=== PATIENT | female | born 1965 | race Hispanic/Latino ===

== ENCOUNTER 2021-08-04 09:22 | Emergency (ER) | payer OTHER ==
[~2021-08-04] VITALS: Ht 167.6 cm; Wt 65.8 kg
[2021-08-04] VITALS (8 sets, daily range): BP systolic 155–199; BP diastolic 82–114
[~2021-08-04 09:22] MED LIST: APIX5TAB PO; DILT30 PO; METO25 PO; OSEL75 PO
[2021-08-04 09:43] LABS: BASOPHILS % (AUTO) 0.6 % (0.0-5.0); EOSINOPHILS % (AUTO) 0.2 % (0.0-8.0); HEMATOCRIT 40.4 % (36-48); LYMPHOCYTES % (AUTO) 11.9 % (21.0-51.0); MEAN CORPUSCULAR HEMOGLOBIN 29.5 pg (27.0-33.0); MEAN CORPUSCULAR HGB CONC 34.4 g/dL (32.0-36.0); MEAN CORPUSCULAR VOLUME 85.8 fL (79-99); MONOCYTES % (AUTO) 4.3 % (3.0-13.0); NEUTROPHILS % (AUTO) 82.8 % (40.0-77.0); PLATELET COUNT (AUTO) 241 K/uL (130-400); RED BLOOD CELL COUNT(AUTO) 4.71 MIL/uL (4.00-5.50); WHITE BLOOD COUNT (AUTO) 8.6 K/uL (4.8-10.8)
[2021-08-04 09:56] LABS: CREATININE 1.3 mg/dL (0.5-1.5); POTASSIUM 3.2 mmol/L (3.5-5.1)
[2021-08-04 10:01] LABS: BILIRUBIN,TOTAL 0.7 mg/dL (0.2-1.0); TOTAL PROTEIN, SERUM 8.4 g/dL (6.0-8.3)
[2021-08-04 10:11] LABS: B-TYPE NATRIURETIC PEPTIDE 134 pg/mL (0-100)
[2021-08-04 10:38] LABS: APPEARANCE,URINE Clear (CLEAR); BILIRUBIN,URINE Negative (NEGATIVE); COLOR,URINE Yellow (YELLOW); GLUCOSE, URINE (UA) 500 mg/dL (NEGATIVE); KETONES,URINE Negative (NEGATIVE); LEUKOCYTE ESTERASE ,URINE Negative (NEGATIVE); NITRATE,URINE Negative (NEGATIVE); OCCULT BLOOD,URINE Negative (NEGATIVE); PROTEIN,URINE Negative (NEGATIVE); UROBILINOGEN,URINE 0.2 mg/dL (0.2-1.0)
[2021-08-04 10:48] LABS: AMPHET/METH SCREEN,URINE NEGATIVE (NEGATIVE); BARBITURATE SCREEN, URINE NEGATIVE (NEGATIVE); BENZODIAZEPINES SCREEN,URINE NEGATIVE (NEGATIVE); CANNABINOID SCREEN,URINE NEGATIVE (NEGATIVE); COCAINE SCREEN,URINE NEGATIVE (NEGATIVE); OPIATE SCREEN,URINE NEGATIVE (NEGATIVE); PHENCYCLIDINE SCREEN,URINE NEGATIVE (NEGATIVE)
[2021-08-04 10:57] LABS: BACTERIA,URINE Rare /HPF (None Seen); RBC,URINE None Seen /HPF (0-1); SQUAMOUS EPITHELIAL CELL,UR Rare /HPF (0-2); WBC,URINE None Seen /HPF (0-1)
[2021-08-04] MEDS ORDERED: IOHEXOL-350 75 ML VIAL IV ONE (12:20)
[2021-08-04] MEDS ORDERED: ASPIRIN 325MG TAB PO ONE (16:30)
[2021-08-04] MEDS ORDERED: METO100T14 PO (21:25)
[2021-08-04] MEDS ORDERED: NIFE-39 PO (21:25)
[2021-08-04] MEDS ORDERED: GLIP10TA9 PO (21:25)
[2021-08-04] MEDS ORDERED: HYDR12.54 PO (21:25)
[2021-08-04] MEDS ORDERED: SITA25TA5 PO (21:25)
[2021-08-04] MEDS ORDERED: ATOR10 PO (21:25)
[2021-08-04] MEDS ORDERED: HYDR-4153 PO (21:25)
[2021-08-04] MEDS ORDERED: SPIR25TA6 PO (21:25)
[2021-08-04] MEDS ORDERED: METF-445 PO (21:26)
[2021-08-04] MEDS ORDERED: HYDROCHLOROTHIAZIDE 25 MG TABLET PO ONE (23:00)
[2021-08-04] MEDS ORDERED: METFORMIN HCL 850 MG TABLET PO SCH (23:00)
[2021-08-04] MEDS ORDERED: METOPROLOL TARTRATE 50 MG TAB PO ONE (23:00)
== END 2021-08-05 00:30 | disposition short-term general hospital (02) ==
LOC: EDH 09:22
DX: I63.9 Cerebral infarction, unspecified (principal); I10 Essential (primary) hypertension; E11.9 Type 2 diabetes mellitus without complications; Z79.899 Other long term (current) drug therapy; Z79.84 Long term (current) use of oral hypoglycemic drugs; Z20.822 Contact with and (suspected) exposure to COVID-19
CPT/HCPCS: 36415; 70450; 70496; 70498; 70551; 80053; 80305; 81001; 82948; 83880; 84484; 85025; 87635; 93005; 99285; C9803; Q9967

== ENCOUNTER 2022-02-06 15:04 | Inpatient (IN) | payer OTHER ==
[~2022-02-06] VITALS: Ht 152.4 cm; Wt 67.4 kg
[~2022-02-06 15:04] MED LIST changes: +AMLO5TAB4 PO; -APIX5TAB PO; +ATOR20TA65 PO; +CLOP75TA14 PO; -DILT30 PO; +FAMO40TA7 PO; +GLIP10TA9 PO; +HYDR-4153 PO; +METF-445 PO; -METO25 PO; +METO25TA6 PO; -OSEL75 PO
[2022-02-06 15:39] LABS: BASOPHILS % (AUTO) 0.6 % (0.0-5.0); EOSINOPHILS % (AUTO) 0.5 % (0.0-8.0); HEMATOCRIT 35.7 % (36-48); LYMPHOCYTES % (AUTO) 9.5 % (21.0-51.0); MEAN CORPUSCULAR HEMOGLOBIN 29.4 pg (27.0-33.0); MEAN CORPUSCULAR HGB CONC 33.3 g/dL (32.0-36.0); MEAN CORPUSCULAR VOLUME 88.1 fL (79-99); MONOCYTES % (AUTO) 4.7 % (3.0-13.0); PLATELET COUNT (AUTO) 224 K/uL (130-400); RED BLOOD CELL COUNT(AUTO) 4.05 MIL/uL (4.00-5.50); RED CELL DISTRIBUTION WIDTH 12.3 % (11.0-15.5); WHITE BLOOD COUNT (AUTO) 11.7 K/uL (4.8-10.8)
[2022-02-06 15:52] LABS: APPEARANCE,URINE CLEAR (CLEAR); BILIRUBIN,URINE NEGATIVE (NEGATIVE); COLOR,URINE YELLOW (YELLOW); GLUCOSE, URINE (UA) >=1000 mg/dL (NEGATIVE); KETONES,URINE NEGATIVE (NEGATIVE); LEUKOCYTE ESTERASE ,URINE NEGATIVE (NEGATIVE); NITRATE,URINE NEGATIVE (NEGATIVE); OCCULT BLOOD,URINE TRACE-INTACT (NEGATIVE); PH,URINE 6.5 (5.0-8.0); PROTEIN,URINE NEGATIVE (NEGATIVE)
[2022-02-06 15:52] LABS: CARBON DIOXIDE 29 mmol/L (21-32); CHLORIDE 101 mmol/L (101-111); CREATININE 0.8 mg/dL (0.5-1.5); GLOMERULAR FILTR. RATE CALC 79 mL/min (>60); GLUCOSE,RANDOM 274 mg/dL (70-105); POTASSIUM 3.4 mmol/L (3.5-5.1); SODIUM SERUM 141 mmol/L (136-145); UREA NITROGEN, BLOOD 15 mg/dL (7-18)
[2022-02-06] MEDS ORDERED: ONDANSETRON 4MG INJ IVP ONE (16:00)
[2022-02-06] MEDS ORDERED: MORPHINE 2 MG SYG IVP ONE (16:00)
[2022-02-06 16:01] LABS: ALANINE AMINOTRANSFERASE 37 U/L (12-78); ALBUMIN 3.8 g/dL (3.5-5.0); ASPARTATE AMINOTRANSFERASE 25 U/L (10-37); BILIRUBIN,TOTAL 0.4 mg/dL (0.2-1.0); TOTAL PROTEIN, SERUM 7.6 g/dL (6.0-8.3)
[2022-02-06 16:02] LABS: CRP QUANTITATIVE < 2.00 mg/L (0.00-9.0)
[2022-02-06 16:06] LABS: BACTERIA,URINE Few /HPF (None Seen); WBC,URINE 0-1 /HPF (0-1)
[2022-02-06 16:07] LABS: SQUAMOUS EPITHELIAL CELL,UR Rare /HPF (0-2)
[2022-02-06] MEDS ORDERED: ASPIRIN 325MG TAB PO ONE (16:30)
[2022-02-06] MEDS ORDERED: NITROGLYCERIN 1GM OINT 1 INCH/1GM TD ONE (16:30)
[2022-02-06] MEDS ORDERED: PANTOPRAZOLE 40 MG TAB DR PO SCH (18:00)
[2022-02-06] MEDS ORDERED: KCL 20 MEQ ERTAB PO ONE (18:00)
[2022-02-06] MEDS ORDERED: 0.9%NACL 1000ML 1,000 ML IV SCH (18:00)
[2022-02-06 18:01] LABS: HEMOGLOBIN A1C 6.7 % (4.0-6.0)
[2022-02-06] MEDS: HYDRALAZINE 25MG TABLET PO SCH ×2 (18:26→21:09)
[2022-02-06] MEDS ORDERED: LABETALOL 20MG VIAL IV PRN (18:30)
[2022-02-06] MEDS: HYDROMORPHONE 0.5 MG SYG (0.5MG/0.5ML) IVP PRN ×2 (18:39→23:15)
[2022-02-06] MEDS ORDERED: AMLO-258 PO (18:48)
[2022-02-06] MEDS ORDERED: HYDR-4153 PO (18:48)
[2022-02-06 19:15] LABS: HEMATOCRIT 34.7 % (36-48)
[2022-02-06 19:26] LABS: INR 1.08 (0.85-1.15); PROTHROMBIN TIME 11.7 SEC (9.6-11.6)
[2022-02-06 19:28] LABS: PARTIAL THROMBOPLASTIN TIME 26.9 SEC (26.3-35.5)
[2022-02-06] MEDS: INSULIN HUMULIN R 100 UNIT/ML 3ML SQ SCH (21:00)
[2022-02-06] MEDS: METOPROLOL TARTRATE 25 MG TAB PO SCH (21:07)
[2022-02-06] MEDS ORDERED: MORPHINE 4 MG SYG ONE (21:26)
[2022-02-07] MEDS: HYDROMORPHONE 0.5 MG SYG (0.5MG/0.5ML) IVP PRN ×3 (03:50→20:03)
[2022-02-07 04:25] VITALS: BP 179/97
[2022-02-07] MEDS: INSULIN HUMULIN R 100 UNIT/ML 3ML SQ SCH ×4 (05:36→20:06)
[2022-02-07] MEDS: MORPHINE 4 MG SYG IV PRN ×2 (06:05→13:58)
[2022-02-07 06:49] LABS: HEMATOCRIT 32.3 % (36-48)
[2022-02-07 06:58] LABS: CREATININE 0.7 mg/dL (0.5-1.5); POTASSIUM 3.6 mmol/L (3.5-5.1)
[2022-02-07 07:30] VITALS: BP 169/101
[2022-02-07] MEDS: HYDRALAZINE 25MG TABLET PO SCH ×2 (08:19→13:15)
[2022-02-07] MEDS: ATORVASTATIN 20 MG TABLET PO SCH (08:19)
[2022-02-07] MEDS: PANTOPRAZOLE 40 MG TAB DR PO SCH (08:19)
[2022-02-07] MEDS: METOPROLOL TARTRATE 25 MG TAB PO SCH ×2 (08:20→20:00)
[2022-02-07] MEDS ORDERED: AMLODIPINE 5 MG TAB PO SCH (09:00)
[2022-02-07 11:10] VITALS: BP 162/88
[2022-02-07 15:10] VITALS: BP 156/73
[2022-02-07] MEDS ORDERED: HYDROCHLOROTHIAZIDE 25 MG TABLET PO ONE (19:00)
[2022-02-07 19:53] VITALS: BP 168/90
[2022-02-07] MEDS: TRAZODONE HCL 50 MG TAB PO SCH (20:00)
[2022-02-07] MEDS: NIFEDIPINE 10 MG CAP PO SCH (20:02)
[2022-02-07 23:37] VITALS: BP 133/69
[2022-02-08 03:58] VITALS: BP 129/68
[2022-02-08] MEDS: INSULIN HUMULIN R 100 UNIT/ML 3ML SQ SCH ×4 (05:25→20:35)
[2022-02-08 07:20] VITALS: BP 134/72
[2022-02-08 08:29] LABS: HEMATOCRIT 31.3 % (36-48); MEAN CORPUSCULAR HEMOGLOBIN 29.3 pg (27.0-33.0); MEAN CORPUSCULAR HGB CONC 32.9 g/dL (32.0-36.0); MEAN CORPUSCULAR VOLUME 89.2 fL (79-99); PLATELET COUNT (AUTO) 156 K/uL (130-400); RED BLOOD CELL COUNT(AUTO) 3.51 MIL/uL (4.00-5.50); RED CELL DISTRIBUTION WIDTH 12.5 % (11.0-15.5); WHITE BLOOD COUNT (AUTO) 12.7 K/uL (4.8-10.8)
[2022-02-08 08:40] LABS: CREATININE 0.9 mg/dL (0.5-1.5)
[2022-02-08 08:42] LABS: POTASSIUM 2.8 mmol/L (3.5-5.1)
[2022-02-08] MEDS ORDERED: LIDOCAINE HCL-MPF 1% 2ML VIAL IV PRN (09:00)
[2022-02-08] MEDS ORDERED: POTASSIUM CHLORIDE 20MEQ/100ML 100 ML IV PRN (09:00)
[2022-02-08 09:16] LABS: LYMPHOCYTES % (MANUAL) 8 % (22-44); MAN.DIFF COMMENT-IMPRESSION MANUAL DIFFERENTIAL; MONOCYTES % (MANUAL) 6 % (2-9); PLATELET MORPHOLOGY COMMENT ADEQUATE; SEGMENTED NEUTROPHILS % 86 % (40-70)
[2022-02-08] MEDS: NIFEDIPINE 10 MG CAP PO SCH ×3 (09:38→20:35)
[2022-02-08] MEDS: METOPROLOL TARTRATE 25 MG TAB PO SCH ×2 (09:39→20:34)
[2022-02-08] MEDS: PANTOPRAZOLE 40 MG TAB DR PO SCH (09:39)
[2022-02-08] MEDS: ATORVASTATIN 20 MG TABLET PO SCH (09:39)
[2022-02-08] MEDS: HYDROCHLOROTHIAZIDE 25 MG TABLET PO SCH (09:39)
[2022-02-08] MEDS: POTASSIUM CHLORIDE 10% ELIXIR 20 MEQ/15 ML UDCUP PO PRN ×3 (09:57→14:48)
[2022-02-08 11:20] VITALS: BP 117/68
[2022-02-08] MEDS: MORPHINE 4 MG SYG IV PRN (13:41)
[2022-02-08 15:35] VITALS: BP 113/75
[2022-02-08 20:26] VITALS: BP 151/84
[2022-02-08] MEDS: TRAZODONE HCL 50 MG TAB PO SCH (20:35)
[2022-02-08 23:37] LABS: INR 1.06 (0.85-1.15); PROTHROMBIN TIME 11.5 SEC (9.6-11.6)
[2022-02-08 23:38] LABS: PARTIAL THROMBOPLASTIN TIME 30.2 SEC (26.3-35.5)
[2022-02-08 23:43] VITALS: BP 120/64
[2022-02-09] VITALS (18 sets, daily range): BP systolic 139–164; BP diastolic 74–91
[2022-02-09] MEDS: POTASSIUM CHLORIDE 10% ELIXIR 20 MEQ/15 ML UDCUP PO PRN ×2 (00:02→02:05)
[2022-02-09] MEDS: INSULIN HUMULIN R 100 UNIT/ML 3ML SQ SCH ×5 (05:43→21:07)
[2022-02-09 05:52] LABS: CREATININE 0.8 mg/dL (0.5-1.5); POTASSIUM 3.7 mmol/L (3.5-5.1)
[2022-02-09] MEDS: MORPHINE 4 MG SYG IV PRN (06:23)
[2022-02-09] MEDS: METOPROLOL TARTRATE 25 MG TAB PO SCH ×2 (07:52→20:32)
[2022-02-09] MEDS: NIFEDIPINE ER 30 MG TAB PO SCH (07:52)
[2022-02-09] MEDS ORDERED: 0.9%NACL 1000ML 1,000 ML IV ONE (09:13)
[2022-02-09] MEDS ORDERED: CEFAZOLIN SODIUM 1 GM VIAL ONE ×3 (09:46→10:43)
[2022-02-09] MEDS ORDERED: CEFAZOLIN SODIUM 1 GM VIAL IVP PRN (10:00)
[2022-02-09] MEDS ORDERED: FAMOTIDINE 20MG VIAL IV ONE (10:17)
[2022-02-09] MEDS ORDERED: ONDANSETRON 4MG INJ ONE (10:19)
[2022-02-09] MEDS ORDERED: FENTANYL CITRATE PF 50 MCG/1 ML 2ML VIAL ONE ×2 (10:19→11:07)
[2022-02-09] MEDS ORDERED: PROPOFOL 10 MG/ML 20ML VIAL IV ONE (10:19)
[2022-02-09] MEDS ORDERED: ROCURONIUM 10MG/1ML SYR 10 MG/ML ML ONE (10:20)
[2022-02-09] MEDS ORDERED: GLYCOPYRROLATE 1 MG/5 ML SYRINGE ONE (10:47)
[2022-02-09] MEDS ORDERED: PHENYLEPHRINE HCL 10 MG/ML 1ML VIAL IV ONE (10:48)
[2022-02-09] MEDS ORDERED: NEOSTIGMINE 5MG/5ML SYR IV ONE (11:25)
[2022-02-09] MEDS: HYDROCHLOROTHIAZIDE 25 MG TABLET PO SCH (17:15)
[2022-02-09] MEDS: ATORVASTATIN 20 MG TABLET PO SCH (17:15)
[2022-02-09] MEDS: PANTOPRAZOLE 40 MG TAB DR PO SCH (17:15)
[2022-02-09] MEDS ORDERED: WARFARIN SODIUM 5 MG TAB PO SCH (19:45)
[2022-02-09] MEDS: CEPHALEXIN 500 MG CAPSULE PO SCH (20:29)
[2022-02-09] MEDS: TRAZODONE HCL 50 MG TAB PO SCH (20:30)
[2022-02-09] MEDS: HYDROMORPHONE 0.5 MG SYG (0.5MG/0.5ML) IVP PRN (21:22)
[2022-02-10] MEDS: MORPHINE 4 MG SYG IV PRN ×3 (02:28→13:23)
[2022-02-10 03:33] VITALS: BP 148/82
[2022-02-10 03:57] LABS: BASOPHILS % (AUTO) 0.2 % (0.0-5.0); HEMATOCRIT 28.7 % (36-48); LYMPHOCYTES % (AUTO) 5.5 % (21.0-51.0); MEAN CORPUSCULAR HEMOGLOBIN 29.5 pg (27.0-33.0); MEAN CORPUSCULAR HGB CONC 33.1 g/dL (32.0-36.0); MEAN CORPUSCULAR VOLUME 89.1 fL (79-99); MONOCYTES % (AUTO) 8.8 % (3.0-13.0); PLATELET COUNT (AUTO) 181 K/uL (130-400); RED BLOOD CELL COUNT(AUTO) 3.22 MIL/uL (4.00-5.50); WHITE BLOOD COUNT (AUTO) 12.8 K/uL (4.8-10.8)
[2022-02-10 04:10] LABS: % IRON SATURATION 4.8 % (22-44); INR 1.12 (0.85-1.15); PROTHROMBIN TIME 12.1 SEC (9.6-11.6)
[2022-02-10 04:34] LABS: CREATININE 0.9 mg/dL (0.5-1.5); POTASSIUM 3.1 mmol/L (3.5-5.1)
[2022-02-10] MEDS: POTASSIUM CHLORIDE 10% ELIXIR 20 MEQ/15 ML UDCUP PO PRN (06:03)
[2022-02-10] MEDS: INSULIN HUMULIN R 100 UNIT/ML 3ML SQ SCH ×4 (06:30→20:48)
[2022-02-10 08:00] VITALS: BP 152/87
[2022-02-10] MEDS: CEPHALEXIN 500 MG CAPSULE PO SCH ×2 (08:57→20:25)
[2022-02-10] MEDS: ATORVASTATIN 20 MG TABLET PO SCH (08:57)
[2022-02-10] MEDS: NIFEDIPINE ER 30 MG TAB PO SCH (08:57)
[2022-02-10] MEDS: METOPROLOL TARTRATE 25 MG TAB PO SCH ×2 (08:58→20:27)
[2022-02-10] MEDS: HYDROCHLOROTHIAZIDE 25 MG TABLET PO SCH (08:58)
[2022-02-10] MEDS: PANTOPRAZOLE 40 MG TAB DR PO SCH (08:58)
[2022-02-10] MEDS ORDERED: ENOXAPARIN SODIUM 30 MG/0.3 ML SQ SCH (09:00)
[2022-02-10 11:39] VITALS: BP 138/78
[2022-02-10] MEDS: KCL 20 MEQ ERTAB PO PRN ×2 (12:29→16:19)
[2022-02-10 15:36] VITALS: BP 138/78
[2022-02-10] MEDS: WARFARIN SODIUM 5 MG TAB PO SCH (16:21)
[2022-02-10 20:04] VITALS: BP 146/85
[2022-02-10] MEDS: TRAZODONE HCL 50 MG TAB PO SCH (20:25)
[2022-02-10] MEDS: HYDROMORPHONE 0.5 MG SYG (0.5MG/0.5ML) IVP PRN (20:27)
[2022-02-11 00:08] VITALS: BP 128/74
[2022-02-11 04:08] VITALS: BP 128/77
[2022-02-11 05:07] LABS: BASOPHILS % (AUTO) 0.3 % (0.0-5.0); EOSINOPHILS % (AUTO) 0.1 % (0.0-8.0); HEMATOCRIT 27.6 % (36-48); LYMPHOCYTES % (AUTO) 7.3 % (21.0-51.0); MEAN CORPUSCULAR VOLUME 87.9 fL (79-99); MONOCYTES % (AUTO) 9.2 % (3.0-13.0); NEUTROPHILS % (AUTO) 82.6 % (40.0-77.0); PLATELET COUNT (AUTO) 177 K/uL (130-400); RED BLOOD CELL COUNT(AUTO) 3.14 MIL/uL (4.00-5.50); WHITE BLOOD COUNT (AUTO) 12.1 K/uL (4.8-10.8)
[2022-02-11 05:14] LABS: INR 2.5 (0.85-1.15); PROTHROMBIN TIME 25.1 SEC (9.6-11.6)
[2022-02-11 05:15] LABS: PARTIAL THROMBOPLASTIN TIME 38.4 SEC (26.3-35.5)
[2022-02-11 05:16] LABS: CREATININE 0.8 mg/dL (0.5-1.5); POTASSIUM 3.3 mmol/L (3.5-5.1)
[2022-02-11] MEDS: INSULIN HUMULIN R 100 UNIT/ML 3ML SQ SCH ×4 (06:09→21:00)
[2022-02-11 07:10] VITALS: BP 120/66
[2022-02-11] MEDS: ATORVASTATIN 20 MG TABLET PO SCH (08:50)
[2022-02-11] MEDS: NIFEDIPINE ER 30 MG TAB PO SCH (08:50)
[2022-02-11] MEDS: METOPROLOL TARTRATE 25 MG TAB PO SCH ×2 (08:50→20:15)
[2022-02-11] MEDS: PANTOPRAZOLE 40 MG TAB DR PO SCH (08:50)
[2022-02-11] MEDS: CEPHALEXIN 500 MG CAPSULE PO SCH ×2 (08:50→20:14)
[2022-02-11] MEDS: HYDROCHLOROTHIAZIDE 25 MG TABLET PO SCH (08:50)
[2022-02-11] MEDS: IRON SUCROSE COMPLEX 100 MG in 0.9%NACL 50ML 50 ML IV SCH (08:51)
[2022-02-11] MEDS: POTASSIUM CHLORIDE 10% ELIXIR 20 MEQ/15 ML UDCUP PO PRN ×4 (08:52→16:59)
[2022-02-11] MEDS ORDERED: COMPOUND IV MISC 1 EACH IVSOLN MISC PRN (09:00)
[2022-02-11 11:10] VITALS: BP 118/74
[2022-02-11 15:10] VITALS: BP 133/69
[2022-02-11] MEDS: WARFARIN SODIUM 5 MG TAB PO SCH (15:37)
[2022-02-11 20:08] VITALS: BP 149/72
[2022-02-11] MEDS: LACTULOSE 20 GM/30 ML UDCUP PO PRN (20:14)
[2022-02-11] MEDS: TRAZODONE HCL 50 MG TAB PO SCH (20:14)
[2022-02-11] MEDS: MORPHINE 4 MG SYG IV PRN (20:16)
[2022-02-12] VITALS (7 sets, daily range): BP systolic 121–167; BP diastolic 73–87
[2022-02-12 03:56] LABS: BASOPHILS % (AUTO) 0.4 % (0.0-5.0); EOSINOPHILS % (AUTO) 0.3 % (0.0-8.0); HEMATOCRIT 26.9 % (36-48); LYMPHOCYTES % (AUTO) 7.9 % (21.0-51.0); MEAN CORPUSCULAR HEMOGLOBIN 29.5 pg (27.0-33.0); MEAN CORPUSCULAR HGB CONC 33.1 g/dL (32.0-36.0); MEAN CORPUSCULAR VOLUME 89.1 fL (79-99); MONOCYTES % (AUTO) 8.9 % (3.0-13.0); NEUTROPHILS % (AUTO) 82.1 % (40.0-77.0); PLATELET COUNT (AUTO) 213 K/uL (130-400); RED BLOOD CELL COUNT(AUTO) 3.02 MIL/uL (4.00-5.50); RED CELL DISTRIBUTION WIDTH 11.9 % (11.0-15.5); WHITE BLOOD COUNT (AUTO) 10.2 K/uL (4.8-10.8)
[2022-02-12 04:03] LABS: PARTIAL THROMBOPLASTIN TIME 46.4 SEC (26.3-35.5)
[2022-02-12 04:07] LABS: INR 5.24 (0.85-1.15); PROTHROMBIN TIME 49.1 SEC (9.6-11.6)
[2022-02-12 04:16] LABS: CREATININE 0.8 mg/dL (0.5-1.5); POTASSIUM 3.4 mmol/L (3.5-5.1)
[2022-02-12] MEDS: LACTULOSE 20 GM/30 ML UDCUP PO PRN (05:18)
[2022-02-12] MEDS: POTASSIUM CHLORIDE 10% ELIXIR 20 MEQ/15 ML UDCUP PO PRN ×2 (05:18→07:01)
[2022-02-12] MEDS: INSULIN HUMULIN R 100 UNIT/ML 3ML SQ SCH ×4 (05:41→21:19)
[2022-02-12] MEDS: ATORVASTATIN 20 MG TABLET PO SCH (09:23)
[2022-02-12] MEDS: NIFEDIPINE ER 30 MG TAB PO SCH (09:23)
[2022-02-12] MEDS: IRON SUCROSE COMPLEX 100 MG in 0.9%NACL 50ML 50 ML IV SCH (09:23)
[2022-02-12] MEDS: HYDROCHLOROTHIAZIDE 25 MG TABLET PO SCH (09:24)
[2022-02-12] MEDS: CEPHALEXIN 500 MG CAPSULE PO SCH ×2 (09:24→20:01)
[2022-02-12] MEDS: PANTOPRAZOLE 40 MG TAB DR PO SCH (09:24)
[2022-02-12] MEDS: METOPROLOL TARTRATE 25 MG TAB PO SCH ×2 (09:24→20:01)
[2022-02-12] MEDS ORDERED: MORPHINE 4 MG SYG IV PRN (19:30)
[2022-02-12] MEDS: TRAZODONE HCL 50 MG TAB PO SCH (20:01)
[2022-02-13] MEDS ORDERED: ACETAMINOPHEN WITH CODEINE 1 TAB TAB PO PRN ×2 (01:00)
[2022-02-13 04:19] VITALS: BP 150/83
[2022-02-13 04:26] LABS: PARTIAL THROMBOPLASTIN TIME 51.1 SEC (26.3-35.5)
[2022-02-13 04:29] LABS: INR 3.92 (0.85-1.15); PROTHROMBIN TIME 37.7 SEC (9.6-11.6)
[2022-02-13] MEDS ORDERED: IRON SUCROSE COMPLEX 500 MG in 0.9% NACL 250ML 250 ML IV SCH (07:00)
[2022-02-13 07:25] VITALS: BP 147/88
[2022-02-13] MEDS: INSULIN HUMULIN R 100 UNIT/ML 3ML SQ SCH ×2 (07:30→11:43)
[2022-02-13 08:41] LABS: HEMATOCRIT 28.4 % (36-48); MEAN CORPUSCULAR HGB CONC 32.7 g/dL (32.0-36.0); MEAN CORPUSCULAR VOLUME 88.5 fL (79-99); RED BLOOD CELL COUNT(AUTO) 3.21 MIL/uL (4.00-5.50); RED CELL DISTRIBUTION WIDTH 12.1 % (11.0-15.5); RETICULOCYTE % (AUTO) 1.78 % (0.42-2.23); WHITE BLOOD COUNT (AUTO) 10.4 K/uL (4.8-10.8)
[2022-02-13] MEDS ORDERED: BISACODYL 5 MG TABLET.DR PO SCH (09:00)
[2022-02-13] MEDS ORDERED: COMPOUND IV REFRIGERATED 1 EACH IVSOLN MISC PRN (09:00)
[2022-02-13] MEDS ORDERED: LISINOPRIL 10 MG TABLET PO SCH (09:00)
[2022-02-13] MEDS: METOPROLOL TARTRATE 25 MG TAB PO SCH (09:07)
[2022-02-13] MEDS: ATORVASTATIN 20 MG TABLET PO SCH (09:07)
[2022-02-13] MEDS: NIFEDIPINE ER 30 MG TAB PO SCH (09:07)
[2022-02-13] MEDS: HYDROCHLOROTHIAZIDE 25 MG TABLET PO SCH (09:07)
[2022-02-13] MEDS: CEPHALEXIN 500 MG CAPSULE PO SCH (09:07)
[2022-02-13] MEDS: PANTOPRAZOLE 40 MG TAB DR PO SCH (09:07)
[2022-02-13 09:08] LABS: CREATININE 0.7 mg/dL (0.5-1.5); POTASSIUM 3.3 mmol/L (3.5-5.1)
[2022-02-13] MEDS ORDERED: TRAZ-253 PO (09:17)
[2022-02-13] MEDS ORDERED: ATOR20TA65 PO (09:17)
[2022-02-13] MEDS ORDERED: CEPH500C2 PO (09:17)
[2022-02-13] MEDS ORDERED: BISA5TAB12 PO (09:17)
[2022-02-13] MEDS ORDERED: LISI10TA24 PO (09:17)
[2022-02-13] MEDS ORDERED: METO25 PO (09:17)
[2022-02-13] MEDS ORDERED: NIFE-40 PO (09:17)
[2022-02-13 11:25] VITALS: BP 138/86
[2022-02-13] MEDS ORDERED: EPOETIN ALFA-EPBX (NON-ESRD) 10,000 UNIT/ML VIAL SQ SCH (12:00)
== END 2022-02-13 13:35 | disposition home or self-care (01) | DRG 522 ==
LOC: EDH 15:04 → EDHIP 15:05 → OBSVTOIN 15:05 → 4AH 02-07 04:24
PROVIDERS: ADMIT Internal Medicine; ATTEND Internal Medicine
PROC: 0SRS01A Replacement of Left Hip Joint, Femoral Surface with Metal Synthetic Substitute, Uncemented, Open Approach (ICD-10-PCS; principal; 2022-02-09 10:21)
DX: S72.012A Unspecified intracapsular fracture of left femur, initial encounter for closed fracture (principal); G81.14 Spastic hemiplegia affecting left nondominant side; E87.1 Hypo-osmolality and hyponatremia; R47.01 Aphasia; I10 Essential (primary) hypertension; I48.0 Paroxysmal atrial fibrillation; H54.62 Unqualified visual loss, left eye, normal vision right eye; I16.0 Hypertensive urgency; Z20.822 Contact with and (suspected) exposure to COVID-19; E11.9 Type 2 diabetes mellitus without complications; R77.8 Other specified abnormalities of plasma proteins; D64.9 Anemia, unspecified; D72.829 Elevated white blood cell count, unspecified; E78.00 Pure hypercholesterolemia, unspecified; E87.6 Hypokalemia; R79.1 Abnormal coagulation profile; W07.XXXA Fall from chair, initial encounter; Z90.721 Acquired absence of ovaries, unilateral; Z79.84 Long term (current) use of oral hypoglycemic drugs; Z79.02 Long term (current) use of antithrombotics/antiplatelets; Z79.899 Other long term (current) drug therapy; Z86.73 Personal history of transient ischemic attack (TIA), and cerebral infarction without residual deficits; Z91.19 Patient's noncompliance with other medical treatment and regimen; Z83.3 Family history of diabetes mellitus; Z82.49 Family history of ischemic heart disease and other diseases of the circulatory system
CPT/HCPCS: 36415; 71045; 73502; 73560; 80048; 80053; 81001; 82550; 82607; 82728; 82746; 82948; 83036; 83540; 83550; 83735; 83874; 84132; 84145; 84484; 85014; 85018; 85025; 85027; 85045; 85610; 85651; 85730; 86140; 86850; 86900; 86901; 87635; 93005; 97039; G0378; J0690; J1170; J1756; J1815; J2270; J2370; J2405; J2704; J2710; J3010; J3490; J7030; J7050